=== PATIENT | female | born 1965 | race Caucasian/White ===

== ENCOUNTER 2016-08-20 22:18 | Emergency (ER) | payer BC ==
--- NOTE | ~2016-08-20 | CT2 ---
[facility] A Service of [facility] RADIOLOGY TEXT RESULTS PATIENT: JOSHUA FOSTER LOCATION: [facility] : 67 UNIT #: [id number] AGE: [address]: Andrew Gibson SEX: F ORDER DR: [id number] [facility] [address] [facility] [address] [facility]. [place], [place] [address] [id number] E MR#: [id number] Acc #: [id number] NAME: JOSHUA FOSTER. : 1965 SEX: F STUDY DATE/TIME: 08/21/2016 2:31 UNIT: [facility] ROOM: STUDY DESCRIPTION: CT Abd and Pelv W Cont Attending Physician: Andrew iGbson P.A.-C. Ordering Physician: Andrew Gibson P.A.-C. Primary Care Physician: No Primary Care Physician MEDICAL IMAGING REPORT This report is preliminary unless electronic signature is present EXAM CT scan of the abdomen and pelvis with contrast. INDICATIONS Abdominal cramping since yesterday morning. TECHNIQUE The patient was given 100 mL of Isovue 370 and axial 5 mm images were obtained through the abdomen and pelvis. This CT exam was performed with one or more of the following radiation dose reduction techniques: Automatic exposure control, adjustment of mA and/or kV according to patient size, and iterative reconstruction. COMPARISON CT chest from 12/18/13. FINDINGS The lung bases are clear. The liver has a large area of decreased density within it with some peripheral enhancement. This measures about 4.8 cm in maximum dimension. It was present in 2013 and does not seem to have changed and is almost certainly a hemangioma. The spleen, gallbladder, pancreas, adrenal glands and kidneys are normal. The aorta is normal in size. There is no adenopathy. The appendix is normal. There is wall thickening in the lower sigmoid colon with mild surrounding inflammation. There are no significant diverticula and this probably represents focal colitis. The uterus has been removed. The adnexal region is normal and the bladder is normal. The bones are unremarkable. IMPRESSION 1. Findings suggest either diverticulitis or focal colitis involving the mid sigmoid colon with some mild wall thickening throughout a short STS. [facility] A Service of [facility] RADIOLOGY TEXT RESULTS PATIENT: JOSHUA FOSTER [id number] 67 UNIT #: [id number] AGE: [address]: Andrew Gibson PAC SEX: F ORDER DR: segment and surrounding inflammation. 2. Stable low density lesion in the liver unchanged from 2014 consistent with a hemangioma. Dictated by... Joshua Sinha M.D. THIS IS AN ELECTRONICALLY VERIFIED REPORT Joshua Sinha M.D. at 08/21/2016 12:39 PM FEL/tamar TD: 08/21/2016 09:53 JOB #: [id number] MEDICAL IMAGING REPORT Page 1 of 1 COPY
[2016-08-21 00:12] LABS: BASOPHIL# 0.1 X10e3 (0-0.3); BASOPHIL% 0.6 % (0-2.5); EOSINOPHIL# 0.2 X10e3 (0-0.7); EOSINOPHIL% 1.4 % (0.0-7.0); HEMATOCRIT 40.7 % (35.0-45.0); HEMOGLOBIN 13.4 gm/dL (12.0-16.0); LYMPHOCYTE# 3.1 X10e3 (1.0-3.5); LYMPHOCYTE% 21.3 % (17.0-45.0); MEAN CELL VOLUME 92.2 FL (83-96); MEAN CORPUSCULAR HEMOGLOBIN 30.3 PG (28-34); MEAN CORPUSCULAR HGB CONC 32.9 g/dL (30-36); MEAN PLATELET VOLUME 9.2 FL (6.5-11.5); MONOCYTE# 1.2 X10e3 (0-1.0); MONOCYTE% 8.1 % (3.0-12.0); NEUTROPHIL# 10.1 X10e3 (1.5-7.1); NEUTROPHIL% 68.6 % (40-75); PLATELET COUNT 249 X10e3 (140-420); RED BLOOD COUNT 4.41 X10e (3.90-5.30); RED CELL DISTRIBUTION WIDTH 14.3 % (11.0-15.5); WHITE BLOOD COUNT 14.7 X10e3 (4.0-10.5)
[2016-08-21 00:19] LABS: DIFF IND NO
[2016-08-21 00:32] LABS: ALBUMIN SERUM 3.8 g/dL (3.5-5.0); BILIRUBIN, DIRECT 0.3 mg/dL (0.0-0.2); BILIRUBIN,INDIRECT 0.6 mg/dL (0.0-0.9); BILIRUBIN,TOTAL 0.9 mg/dL (0.2-2.0); BUN/CREATININE RATIO 17.14; CALCIUM SERUM 9.1 mg/dL (8.4-10.2); CREATININE SERUM 0.7 mg/dL (0.6-1.4); POTASSIUM 4.6 mmol/L (3.5-5.1); PROTEIN TOTAL SERUM 7.1 g/dL (6.0-8.3)
[2016-08-21 01:55] LABS: URINE SOURCE CLEAN CATCH
[2016-08-21 02:15] LABS: URINE APPEARANCE CLOUDY; URINE BILIRUBIN NEG (NEG); URINE BLOOD TRACE (NEG); URINE COLOR YELLOW; URINE GLUCOSE NEG (NEG); URINE KETONE TRACE (NEG); URINE LEUKOCYTE ESTERASE 1+ (NEG); URINE NITRATE POS (NEG); URINE PH 6.5 (5-8); URINE PROTEIN NEG (NEG); URINE SPECIFIC GRAVITY 1.034 (1.003-1.035); URINE SQUAMOUS EPITHELIAL CELL MOD /[HPF]
[2016-08-21 02:21] LABS: CULTURE INDICATED? YES
== END 2016-08-21 04:05 | disposition home or self-care (01) ==
LOC: CED 22:18
PROVIDERS: Emergency Medicine
DX: K57.32 Diverticulitis of large intestine without perforation or abscess without bleeding (principal); F32.9 Major depressive disorder, single episode, unspecified; Z90.710 Acquired absence of both cervix and uterus; Z88.5 Allergy status to narcotic agent
CPT/HCPCS: 36415; 74177; 80048; 80076; 81003; 82150; 83690; 85025; 87086; 87088; 87186; 96361; 96374; 96375; 99284; J1170; J2405; Q9967